=== PATIENT | female | born 2005 | race Caucasian/White ===

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

== ENCOUNTER 2024-01-25 12:02 | Emergency (ER) | payer BC, SELFPAY ==
--- NOTE | 2024-01-25 12:04 | ED_ITS ---
Discharge Plan Disposition Patient Disposition: Home, Self-Care Condition: Good Prescriptions Prescriptions: New nitrofurantoin monohyd/m-cryst 100 mg capsule 100 mg PO BID 5 Days Qty: 10 0RF Rx Instructions: must administer with a meal/food Referrals Follow up/Referrals: Andrzej Clayton MD [Primary Care Provider] - See instructions Activity Restrictions/Add. Instructions Additional Instructions/Restrictions: I have sent a prescription into your pharmacy. Please take it till it is gone. Follow-up with your PCP for no improvement or worsening symptoms or return to the ER as needed. Clinical Impressions Clinical Impression: Urinary tract infection Qualifiers: Urinary tract infection type: site unspecified Hematuria presence: without hematuria Qualified Code(s): N39.0 - Urinary tract infection, site not specified Instructions Patient Instructions: DI for Urinary Tract Infection (UTI) Print Language Print Language: Sudanese Discharge ED Provider: Julito Michel General Adult HPI <FLORENTINO Perkins - Last Filed: 01/25/24 13:10> General Chief complaint: Urogenital-Female Stated complaint: possible UTI Time Seen by Provider: 01/25/24 12:04 History of Present Illness HPI narrative: Patient presents for evaluation of dysuria. Patient has 3 days of burning blood and suprapubic discomfort. She denies fever chills hemoptysis hematochezia melena nausea vomiting diarrhea vaginal discharge or itching. Related Data Previous Rx's ?Medication ?Instructions ?Recorded nitrofurantoin 100 mg PO BID 5 days #10 caps 01/25/24 monohydrate/macrocrystals 100 mg capsule Allergies Allergy/AdvReac Type Severity Reaction Status Date / Time No Known Allergies Allergy Verified 05/15/23 08:18 PFS <FLORENTINO Perkins - Last Filed: 01/25/24 13:10> [facility] Disclaimer: The information contained in this section may have been updated after the patient was seen, as this information can be updated by other users. Social History (Updated 01/25/24 @ 13:10 by FLORENTINO Perkins) Smoking Status: Never smoker alcohol intake: never current occupational status: employed Other Medical History Have you received the Flu Vaccine for this season: No Have you received the Pneumonia Vaccine: No <FLORENTINO Perkins - Last Filed: 01/25/24 13:10> ROS Obtained: Yes Systems reviewed as appropriate & no additional complaints except as documented Physical Exam <FLORENTINO Perkins - Last Filed: 01/25/24 13:10> General General appearance: alert and in no apparent distress Respiratory Respiratory exam: Present normal lung sounds bilaterally Cardiovascular Cardiovascular exam: Present regular rate Neurological Exam Neurological exam: Present alert and oriented X3 Medical Decision Making <FLORENTINO Perkins - Last Filed: 01/25/24 13:10> Medical Records Screening: Per USPSTF and CDC recommendations, given the prevalence of disease in our region, it is our hospital?s policy to screen for HIV and viral Hepatitis for all patients aged 18 and over and those with ongoing risk factors. Kaushik Inquiry Pt receiving controlled substance: No Vital Signs: 01/25/24 12:14 01/25/24 13:16 Temperature 98.0 F 98.7 F Temperature Source Oral Oral Pulse Rate 74 Pulse Rate [Right Brachial] 72 Respiratory Rate 16 20 Blood Pressure 114/80 Blood Pressure [Right Arm] 112/66 Blood Pressure Mean [Right Arm] 81 Blood Pressure Source Automatic Cuff Blood Pressure Source [Right Arm] Automatic Cuff Blood Pressure Position Supine Blood Pressure Position [Right Arm] Sitting 02 Sat by Pulse Oximetry 100 Oxygen Delivery Method Room Air Room Air Lab Data Lab results reviewed: Yes I reviewed the patient's lab results. Lab Results 01/25/24 12:07: Urine Color Yellow, Urine Appearance Clear, Urine pH 7.5, Ur Specific [place] 1.015, Urine Protein Negative, Urine Glucose (UA) Negative, Urine Ketones Negative, Urine Blood Negative, Urine Nitrate Negative, Urine Bilirubin Negative, Urine Urobilinogen 0.2, Ur Leukocyte Esterase 1+ A, Urine RBC None, Urine WBC 10-20, Ur Squamous Epith Cells 5-10, Urine Bacteria Trace Orders (Tests/Meds): ED MEDICATIONS Generic Name Dose Route Start Last Admin Trade Name Freq PRN Reason Stop Dose Admin Nitrofurantoin Macrocrystals 100 mg 01/25/24 13:18 01/25/24 13:19 Nitrofurantoin 100mg Capsule PO 01/25/24 13:19 100 mg ONCE ONE Administration ORDERS Category Date Time Status UA [Urinalysis and Microscopic] Stat Lab 01/25/24 12:07 Completed Urine Culture Stat Micro 01/25/24 12:07 Received Medical Decision Narrative: In summary patient is a 18-year-old female who presents to the emergency department for evaluation of dysuria. Patient is hemodynamically stable upon arrival, afebrile. Physical exam is remarkable for mild suprapubic tenderness to palpation but no CVA tenderness bilaterally no rebound or guarding no rigidity with normal bowel sounds. Differential diagnosis includes cystitis versus complicated urinary tract infection etc. Initial workup will be conducted with urinalysis. Initial interventions were considered however patient's only minimally symptomatic thus deferred. Initial workup reviewed by me shows that her dipstick is negative for protein blood nitrites but positive for leukocyte esterase and microscopic exam shows no red blood cells 10-20 white cells 5-10 epithelial cells and trace bacteria. Given this patient be given a prescription for Macrobid with first dose given here and instructed to follow-up with PCP for no improvement or worsening signs or symptoms.. <Julito Michel MD - Last Filed: 01/25/24 13:25> Vital Signs: 01/25/24 12:14 01/25/24 13:16 Temperature 98.0 F 98.7 F Temperature Source Oral Oral Pulse Rate 74 Pulse Rate [Right Brachial] 72 Respiratory Rate 16 20 Blood Pressure 114/80 Blood Pressure [Right Arm] 112/66 Blood Pressure Mean [Right Arm] 81 Blood Pressure Source Automatic Cuff Blood Pressure Source [Right Arm] Automatic Cuff Blood Pressure Position Supine Blood Pressure Position [Right Arm] Sitting 02 Sat by Pulse Oximetry 100 Oxygen Delivery Method Room Air Room Air Lab Data Lab Results 01/25/24 12:07: Urine Color Yellow, Urine Appearance Clear, Urine pH 7.5, Ur Specific [place] 1.015, Urine Protein Negative, Urine Glucose (UA) Negative, Urine Ketones Negative, Urine Blood Negative, Urine Nitrate Negative, Urine Bilirubin Negative, Urine Urobilinogen 0.2, Ur Leukocyte Esterase 1+ A, Urine RBC None, Urine WBC 10-20, Ur Squamous Epith Cells 5-10, Urine Bacteria Trace Orders (Tests/Meds): ED MEDICATIONS Generic Name Dose Route Start Last Admin Trade Name Freq PRN Reason Stop Dose Admin Nitrofurantoin Macrocrystals 100 mg 01/25/24 13:18 01/25/24 13:19 Nitrofurantoin 100mg Capsule PO 01/25/24 13:19 100 mg ONCE ONE Administration ORDERS Category Date Time Status UA [Urinalysis and Microscopic] Stat Lab 01/25/24 12:07 Completed Urine Culture Stat Micro 01/25/24 12:07 Received Medical Decision Narrative: In summary patient is a 18-year-old female who presents to the emergency department for evaluation of dysuria. Patient is hemodynamically stable upon arrival, afebrile. Physical exam is remarkable for mild suprapubic tenderness to palpation but no CVA tenderness bilaterally no rebound or guarding no rigidity with normal bowel sounds. Differential diagnosis includes cystitis versus complicated urinary tract infection etc. Initial workup will be conducted with urinalysis. Initial interventions were considered however patient's only minimally symptomatic thus deferred. Initial workup reviewed by me shows that her dipstick is negative for protein blood nitrites but positive for leukocyte esterase and microscopic exam shows no red blood cells 10-20 white cells 5-10 epithelial cells and trace bacteria. Given this patient be given a prescription for Macrobid with first dose given here and instructed to follow-up with PCP for no improvement or worsening signs or symptoms.. I was consulted by the GEETHA, and we discussed the complexity of the problems being addressed. I approved the treatment and management plan for this patient's care in the Emergency Department, thus performing a substantive portion of the medical decision making. Julito Michel MD Critical Care <FLORENTINO Perkins - Last Filed: 01/25/24 13:10> Critical Care Time Critical Care Time: No
[2024-01-25 12:14] VITALS: BP 112/66; PULSE 72; RESP 16; TEMP 36.7; O2SAT 100; BMI 21.6
[2024-01-25 12:20] LABS: Microscopic, Urine URINE MICROSCOPIC (MICROSCOPIC)
[2024-01-25 12:21] LABS: Appearance,Urine CLEAR (Clear); Bilirubin,Urine Negative (Negative); Blood, Urine Negative (Negative); Color,Urine YELLOW (Yellow); Glucose,Urine (UA) Negative (Negative); Ketones,Urine Negative (Negative); Leukocyte Esterase,Urine 1+ (Negative); Nitrate,Urine Negative (Negative); PH,Urine 7.5 (5.0-8.5); Protein,Urine Negative (Negative); Specific Gravity, Urine 1.015 (1.005-1.030); Urobilinogen,Urine 0.2 EU/dl (0.2)
[2024-01-25 13:06] LABS: Bacteria,Urine Trace /lpf
[2024-01-25 13:16] VITALS: BP 114/80; PULSE 74; RESP 20; TEMP 37.1; O2SAT 99
[2024-01-25] MEDS: NITROFURANTOIN 100MG CAPSULE 100 MG PO (13:19)
== END 2024-01-25 13:17 | disposition home or self-care (01) ==
PROVIDERS: Physician Assistant; Emergency Provider Emergency Medicine; PCP Family Medicine
DX: N39.0 Urinary tract infection, site not specified (principal); R30.0 Dysuria; R30.9 Painful micturition, unspecified; R10.2 Pelvic and perineal pain
CPT/HCPCS: 81001; 87086; 99283

== ENCOUNTER 2024-05-31 17:00 | Outpatient (CLI) | payer BC, SELFPAY ==
[2024-06-04 21:24] LABS: QuantiFERON-TB Gold Plus Negative (Negative)
== END 2024-05-31 23:59 | disposition home or self-care (01) ==
LOC: LAB 17:01
PROVIDERS: PCP Family Medicine; Visit Provider Family Medicine
DX: Z11.1 Encounter for screening for respiratory tuberculosis (principal)
CPT/HCPCS: 36415; 86480